=== PATIENT | female | born 1985 | race Caucasian/White ===

== ENCOUNTER 2017-04-11 08:16 | Inpatient (IN) | payer BC ==
[~2017-04-11] VITALS: Ht 166.4 cm; Wt 100.0 kg
[~2017-04-11 08:16] MED LIST: [UNRECOGNIZED DRUG - OTHER]
--- NOTE | 2017-04-11 09:00 | Progress Note ---
Progress Note Date of Service Apr 11, 2017. Progress Note 31 F P0000 at 38 weeks admitted with SROM clear fluid. T Cat 1. Cervix ft/50 /-3/vertex. Will admit and ambulate.
[2017-04-11 09:38] LABS: MEAN CORPUSCULAR HEMOGLOBIN 32.2 pg (25-34); MEAN CORPUSCULAR HGB CONC 36.2 g/dl (32-36); MEAN PLATELET VOLUME 9.9 fL (7.4-10.4); PLATELET COUNT 266 K/uL (130-400); RED BLOOD COUNT 3.82 M/uL (4.2-5.4); WHITE BLOOD COUNT 9.78 K/uL (4.8-10.8)
[2017-04-11] MEDS ORDERED: LACTATED RINGER'S 1000ML 500 ML IV PRN (16:13)
[2017-04-11] MEDS ORDERED: OXYTOCIN 30 UNITS/500ML NSS IV PRN (16:15)
[2017-04-11] MEDS: LACTATED RINGER'S 1000ML 1,000 ML IV SCH (17:18)
[2017-04-11] MEDS ORDERED: MISOPROSTOLTAB 50 MCG TAB PO ONE (17:30)
[2017-04-11 18:09] VITALS: Ht 166.4 cm; Wt 100.0 kg
[2017-04-11] MEDS ORDERED: MISOPROSTOLTAB 50 MCG TAB ONE (19:51)
[2017-04-12] MEDS ORDERED: NURSING VERBAL MED ORDER ONE (00:15)
[2017-04-12] MEDS ORDERED: BUTORPHANOL TARTRATE 1 MG/ML VIAL IV ONE (00:30)
[2017-04-12] MEDS ORDERED: BUPIVACAINE 0.25% 30 ML VIAL ONE ×2 (00:57→10:52)
[2017-04-12] MEDS ORDERED: EpHEDrine SULFATE INJ 50 MG/ML AMP ONE (00:57)
[2017-04-12] MEDS ORDERED: FENTANYL 2MCG/ML ROPIV 1.25MG/ML 100ML BAG EPI ONE (00:58)
[2017-04-12] MEDS ORDERED: FENTANYL CITRATE INJ 50 MCG/1 ML 2 ML VIAL ONE (00:58)
[2017-04-12] MEDS: LACTATED RINGER'S 1000ML 1,000 ML IV SCH ×3 (01:29→10:42)
[2017-04-12] MEDS ORDERED: LACTATED RINGER'S 1000ML 500 ML IV PRN (02:56)
[2017-04-12] MEDS ORDERED: NALOXONE HCL INJ 1 MG in SODIUM CHLORIDE 0.9% 1000ML 1,000 ML IV PRN (02:56)
[2017-04-12] MEDS ORDERED: NALOXONE HCL INJ 0.4 MG/1 ML VIAL/CARP IV PRN (03:00)
[2017-04-12] MEDS ORDERED: ONDANSETRON INJ 2 MG/ML 2 ML VIAL IV PRN (03:00)
[2017-04-12] MEDS ORDERED: FENTANYL 2MCG/ML ROPIV 1.25MG/ML 100ML BAG EPI PRN (03:00)
[2017-04-12] MEDS ORDERED: EpHEDrine SULFATE INJ 50 MG/ML AMP IV PRN (03:00)
[2017-04-12] MEDS ORDERED: DiphenhydrAMINE HCL 50 MG/ML VIAL IV PRN (03:00)
[2017-04-12] MEDS ORDERED: NALBUPHINE HCL INJ 10 MG/ML AMP IV PRN (03:00)
[2017-04-12] MEDS: FENTANYL 2MCG/ML ROPIV 1.25MG/ML 100ML BAG EPI PRN ×2 (04:21→07:07)
[2017-04-12] MEDS: CEFAZOLIN IV 2,000 MG in DEXTROSE 5% 50ML 50 ML IV SCH (11:42)
[2017-04-12] MEDS ORDERED: LACTATED RINGER'S 1000ML 1,000 ML IV SCH (12:31)
[2017-04-12] MEDS ORDERED: OXYTOCIN 30 UNITS/500ML NSS IV PRN (12:45)
[2017-04-12] MEDS ORDERED: OXYCODONE/ACETAMINOPHEN 5-325 TAB PO PRN (12:45)
[2017-04-12] MEDS ORDERED: DIPHTHERIA/TETANUS/PERTUSSIS 0.5 ML SYR/VIAL IM. ONE (12:45)
[2017-04-12] MEDS ORDERED: MEASLES, MUMPS & RUBELLA VIRUS VIAL SQ. ONE (12:45)
[2017-04-12] MEDS ORDERED: BENZOCAINE 20% AER SPR 82.5 GM CAN EXT PRN (12:45)
[2017-04-12] MEDS ORDERED: SUPERCREAM 0.870 % 15GM JAR EXT PRN (12:45)
[2017-04-12] MEDS ORDERED: LANOLIN OINT EXT PRN ×2 (12:45)
[2017-04-12] MEDS ORDERED: HYDROCORTISONE ACETATE 25 MG SUPP PR PRN (12:45)
--- NOTE | 2017-04-12 13:12 | DELIVERY SUMMARY ---
DATE OF OPERATION: 04/12/2017 TIME OF DELIVERY OF BABY: 11:58 a.m. TIME OF DELIVERY OF PLACENTA: 12:23 pm DETAILS OF DELIVERY: The patient was found to be fully dilated and desired to push. She pushed for about 3-1/2 hours and was found to be exhausted and declined to push due to the pain, and epidural was not working. She was given a bolus by anesthesiologist from her catheter and she was let to rest about 15 to 20 minutes, and then she woke up with contractions again, wanted to push. She pushed for another half an hour and head was over the perineum which had a tight hymenal ring and perineal muscles. After verbal consent was obtained, right mediolateral episiotomy was opened. A 1% of lidocaine was used for local anesthesia, and with the next 2 pushes head was delivered without difficulty. Shoulders were delivered with minimal traction. Baby was handed off to the mother, where mouth and nose were suctioned. Cord was clamped x2 and cut at 1 minute. Now, vagina and perineum were checked for lacerations. There was only right mediolateral episiotomy which was opened earlier, it was confirmed to be second degree with rectal exam good sphincter tone was noted and gloves were changed. Episiotomy was repaired with 2-0 Vicryl in a running locked fashion bringing the vaginal mucosa together, perineal body muscles together and skin in a subcuticular fashion. Excellent hemostasis was achieved, and placenta was found to be in the vagina, delivered spontaneously as intact and complete. Lower segment was cleared of all clots and debris. Fundus was firm. EBL was 400. Rectal exam was repeated and found to have good sphincter tone. No sutures were felt. Gloves were changed. Mom and baby tolerated the procedure well. Sponge, lap, and needle counts were correct x3. Baby was a viable male infant, Apgars 8 and 9, weight is 3010. No complications happened. I was present during the whole procedure. I attest to the content of the Intraoperative Record and any orders documented therein. Any exceptions are noted below. MTDD
[2017-04-12] MEDS: IBUPROFEN 600 MG TAB PO PRN ×2 (13:40→18:01)
--- NOTE | 2017-04-12 14:56 | Anesthesia Procedure Note ---
Anesthesia Epidural Removal Nt Date & Time Apr 12, 2017 at 14:52 Vital Signs Pain Intensity: 4.0 Notes Mental Status: alert / awake / arousable, participated in evaluation Nausea / Vomiting: adequately controlled Pain: adequately controlled Airway Patency, RR, SpO2: stable & adequate BP & HR: stable & adequate Hydration State: stable & adequate Neuraxial Anesthesia: was administered, sensory block is resolving Anesthetic Complications: pt satisfied with anesthetic care, as follows Anesthetic Complications: Pt received an inadvertent intrathecal catheter. Upon removal of the catheter, I spoke to the patient about the risk of developing a postdural puncture headache. I recommended that the patient receive adequate fluid hydration, caffeine, and bed rest. I spoke to the patient about conservative therapy vs. an epidural blood patch if she did develop a headache. The patient was understanding. I also spoke to Dr. Tucker about the possibility of a postdural puncture headache. Epidural: removed without complications, with tip intact
--- NOTE | 2017-04-12 15:05 | Anesthesiology Progress Note ---
Anesthesia Progress Note Date of Service Apr 12, 2017. Progress Notes Prior to delivery, I was asked by Dr. Tucker to aid in the patient's labor pain. The patient had been pushing for about 3 hours and was beginning to develop labor pains. I administered 3mL of 0.125% bupivacaine through her intrathecal catheter. The pt had immediate relief. Her BP initially declined to 70s/40s. I administered phenylephrine 200mcg IV and started a 1000mL LR bolus. The pt was asymptomatic and heart rates remained stable at 150bpm. I remained with the patient for 30 minutes post-intrathecal bolus. Vital signs for mother and baby were stable throughout with periodic 50mcg phenylephrine IV boluses. A total of 450mcg of phenylephrine had to be administered over this time frame. After 30 minutes, the patient stated having increasing abdominal pressure. It was decided that the patient resume pushing. Afterwards, the patient had an uncomplicated vaginal delivery.
[2017-04-12 15:55] VITALS: BP 119/78; PULSE 97; TEMP 36.8; O2SAT 98
[2017-04-12] MEDS: DOCUSATE SODIUM 100 MG CAP PO SCH (19:47)
[2017-04-12] MEDS: ACETAMINOPHEN 325 MG TAB PO PRN (19:49)
[2017-04-12 20:55] VITALS: BP 115/77; PULSE 80; TEMP 36.9; O2SAT 99
[2017-04-13 00:30] VITALS: BP 109/69; PULSE 80; TEMP 36.4; O2SAT 97
[2017-04-13] MEDS: IBUPROFEN 600 MG TAB PO PRN ×3 (00:50→20:08)
[2017-04-13] MEDS ORDERED: NURSING VERBAL MED ORDER ONE (01:45)
[2017-04-13] MEDS ORDERED: CAFFEINE CITRATE 500 MG in NS 1000ML IV SCH (02:30)
[2017-04-13 04:45] VITALS: BP 95/60; PULSE 79; TEMP 36.8; O2SAT 100
[2017-04-13 06:48] LABS: HEMATOCRIT 23.8 % (37-47); MEAN CELL VOLUME 91.2 fL (80-100); MEAN CORPUSCULAR HEMOGLOBIN 31.4 pg (25-34); MEAN CORPUSCULAR HGB CONC 34.5 g/dl (32-36); MEAN PLATELET VOLUME 9.2 fL (7.4-10.4); PLATELET COUNT 198 K/uL (130-400); RED BLOOD COUNT 2.61 M/uL (4.2-5.4); WHITE BLOOD COUNT 12.61 K/uL (4.8-10.8)
[2017-04-13 07:54] LABS: BASO % 0.1 %; BASO ABS # 0.01 K/uL (0-0.2); COMPLETE YES; EOS % 0.2 %; IG% 0.8 %; LYMPH % 22.5 %; LYMPH ABS # 2.84 K/uL (1.2-3.4); MONO % 4.8 %; NEUT % 71.6 %
[2017-04-13 07:55] VITALS: BP 96/62; PULSE 87; TEMP 36.7
--- NOTE | 2017-04-13 08:55 | OB/GYN Progress Note ---
OPTIMIZATION SPECIALIST Progress Note Date of Service Apr 13, 2017. Subjective conversation w/ patient, physical exam Ambulation: ambulating normally Voiding: no voiding problems Passing Gas: Yes Diet Tolerance: Regular Diet Lochia: Moderate Feeding Type: Breast Feeding Review of Systems Constitutional: No fever, No chills, No sweats, No weight loss, No weakness, No fatigue, No problem reported Respiratory: No cough, No sputum, No wheezing, No shortness of breath, No dyspnea on exertion, No dyspnea at rest, No hemoptysis, No problem reported Cardiac: No chest pain, No orthopnea, No PND, No edema, No claudication, No palpitations, No problem reported Breast: No see HPI, No breast lump, No change in shape, No nipple discharge, No breast pain, No problem reported Abdomen: No pain, No nausea, No vomiting, No diarrhea, No constipation, No GI bleeding, No problem reported Female : No see HPI, No dysuria, No urinary frequency, No hematuria, No incontinence, No abnormal vaginal bleeding, No vaginal discharge, No problem reported Objective Vital Signs Date Time Temp Pulse Resp B/P (MAP) Pulse Ox O2 Delivery O2 Flow Rate FiO2 04/13/17 07:55 36.7 87 18 96/62 (73) Room Air 04/13/17 04:45 36.8 79 16 95/60 (72) 100 Room Air 04/13/17 00:30 36.4 80 16 109/69 (82) 97 Room Air 04/13/17 00:30 97 Room Air 04/12/17 20:55 36.9 80 16 115/77 (90) 99 Room Air 04/12/17 15:55 Room Air 04/12/17 15:55 36.8 97 20 119/78 (92) 98 Room Air Physical Exam General Appearance: WELL-APPEARING, WD/WN, NO APPARENT DISTRESS Respiratory/Chest: chest non-tender, lungs clear, normal breath sounds, no respiratory distress, no accessory muscle use Cardiovascular: regular rate, rhythm, no edema, no gallop, no JVD, no murmur Abdomen: normal bowel sounds, non tender, soft, no organomegaly, no pulsatile mass Fundus: Firm Extremities: normal range of motion, non-tender, normal inspection, no pedal edema, no calf tenderness Laboratory Results Last 24 Hours Test 04/13/17 06:05 White Blood Count 12.61 K/uL Red Blood Count 2.61 M/uL Hemoglobin 8.2 g/dL Hematocrit 23.8 % Mean Corpuscular Volume 91.2 fL Mean Corpuscular Hemoglobin 31.4 pg Mean Corpuscular Hemoglobin Concent 34.5 g/dl Platelet Count 198 K/uL Mean Platelet Volume 9.2 fL Neutrophils (%) (Auto) 71.6 % Lymphocytes (%) (Auto) 22.5 % Monocytes (%) (Auto) 4.8 % Eosinophils (%) (Auto) 0.2 % Basophils (%) (Auto) 0.1 % Neutrophils # (Auto) 9.03 K/uL Lymphocytes # (Auto) 2.84 K/uL Monocytes # (Auto) 0.60 K/uL Eosinophils # (Auto) 0.03 K/uL Basophils # (Auto) 0.01 K/uL RDW Standard Deviation 42.6 fL RDW Coefficient of Variation 12.8 % Immature Granulocyte % (Auto) 0.8 % Immature Granulocyte # (Auto) 0.10 K/uL Red Blood Cell Morphology Unremarkable Assessment and Plan Day Number: 1 Continue Routine Care: PPD #1 Doing well On antibx for prolonged ROM Spinal headache- Anesthesia consult anticipate disch tomorrow
[2017-04-13] MEDS: DOCUSATE SODIUM 100 MG CAP PO SCH ×2 (09:24→20:08)
[2017-04-13] MEDS: PRENATAL VITAMIN TAB PO SCH (09:24)
[2017-04-13] MEDS: FERROUS SULFATE 325 MG TAB PO SCH (09:24)
[2017-04-13] MEDS: ACETAMINOPHEN 325 MG TAB PO PRN ×2 (09:28→16:19)
--- NOTE | 2017-04-13 10:24 | Progress Note ---
Progress Note Date of Service Apr 13, 2017. Progress Note Called to see patient for concern of postdural puncture headache. The patient is a 31 yo primip who vaginally delivered yesterday at 11:58. Epidural placement prior to delivery was noted to be difficult and an intrathecal catheter was placed after inadvertent dural puncture. The catheter was removed yesterday afternoon and the patient reports a headache today. The headache started in the front, but is now concentrated at the base of her spine. The headache is relieved with lying down and exacerbated by standing up. The patient has been hydrating with fluids and drinking water to assist with the headache. The patient is considering blood patch placement. I spent time with the patient explaining the theoretical etiology of postdural puncture headache and the risks and benefits associated with blood patch placement. Risks included but aren't limited to bruising and bleeding on placement, infection, inadvertent repeat dura puncture with worsening of the headache, back pain, nerve damage, and failure to relieve the symptoms despite successful placement. We discussed that literature shows higher success rate if placed after the first 24 hours instead of before. We also discussed the normal course of postdural puncture headache including likely self resolution within 5 to 7 days. The patient was encouraged to continue hydrating and medicating with caffeinated products. She was also encouraged to lay flat as frequently as possible. The patient will consider placement and we will check on her again this afternoon.
[2017-04-13] MEDS: CEFAZOLIN IV 2,000 MG in DEXTROSE 5% 50ML 50 ML IV SCH ×2 (11:18→19:16)
[2017-04-13 12:20] VITALS: BP 102/67; PULSE 68; TEMP 36.9
[2017-04-13 15:45] VITALS: BP 103/69; PULSE 78; TEMP 36.8; O2SAT 100
[2017-04-13] MEDS ORDERED: BISACODYL 5 MG TABEC PO SCH (20:00)
--- NOTE | 2017-04-13 21:43 | Anesthesiology Progress Note ---
Anesthesia Progress Note Date of Service Apr 13, 2017. Progress Notes Pt has c/o PDPH.Pt requests an epidural blood patch.Discussed procedure with pt. ,risks vs benefits,all questions answered.Informed consent obtained.Monitors applied,Vs's taken. Pt placed sitting up L4-5 interspace ID'ed.Prepped w/duraprep x 2,draped.1% lidocaine local infiltration.#17G tuohy needle inserted,+ LORTS.atraumatic,no blood,no csf or paresthesias.Concurrently blood was drawn from pt's arm using sterile prep and draping with chloroprep. At 2112 , 20 ml of blood was injected via the epidural needle into the epidural space.Needle was removed and pt was placed supine x 30 minutes. At 2141,pt was reassessed by having her sit up.Pt stated H/A has abated.
[2017-04-14 00:15] VITALS: BP 105/65; PULSE 81; TEMP 36.6
[2017-04-14] MEDS ORDERED: BISACODYL 10 MG SUPP PR PRN (07:00)
[2017-04-14 07:02] LABS: HEMATOCRIT 23.3 % (37-47); MEAN CORPUSCULAR HGB CONC 35.2 g/dl (32-36); MEAN PLATELET VOLUME 9.9 fL (7.4-10.4); PLATELET COUNT 214 K/uL (130-400); RED BLOOD COUNT 2.56 M/uL (4.2-5.4); WHITE BLOOD COUNT 10.27 K/uL (4.8-10.8)
--- NOTE | 2017-04-14 07:07 | OB/GYN Progress Note ---
MARKETING COMMUNICATIONS SPECIALIST Progress Note Date of Service Apr 14, 2017. Subjective conversation w/ patient, physical exam Ambulation: ambulating normally Voiding: no voiding problems Passing Gas: Yes Diet Tolerance: Regular Diet Lochia: Moderate Feeding Type: Breast Feeding Review of Systems Constitutional: No fever, No chills, No sweats, No weight loss, No weakness, No fatigue, No problem reported Respiratory: No cough, No sputum, No wheezing, No shortness of breath, No dyspnea on exertion, No dyspnea at rest, No hemoptysis, No problem reported Cardiac: No chest pain, No orthopnea, No PND, No edema, No claudication, No palpitations, No problem reported Breast: No see HPI, No breast lump, No change in shape, No nipple discharge, No breast pain, No problem reported Abdomen: No pain, No nausea, No vomiting, No diarrhea, No constipation, No GI bleeding, No problem reported Female : No see HPI, No dysuria, No urinary frequency, No hematuria, No incontinence, No abnormal vaginal bleeding, No vaginal discharge, No problem reported Objective Vital Signs Date Time Temp Pulse Resp B/P (MAP) Pulse Ox O2 Delivery O2 Flow Rate FiO2 04/14/17 00:15 Room Air 04/14/17 00:15 36.6 81 18 105/65 (78) Room Air 04/13/17 15:45 36.8 78 18 103/69 (80) 100 Room Air 04/13/17 15:45 100 Room Air 04/13/17 12:20 36.9 68 20 102/67 (79) Room Air 04/13/17 08:30 Room Air 04/13/17 07:55 36.7 87 18 96/62 (73) Room Air Physical Exam General Appearance: WELL-APPEARING, WD/WN, NO APPARENT DISTRESS, uncomfortable Respiratory/Chest: chest non-tender, lungs clear, normal breath sounds, no respiratory distress, no accessory muscle use Cardiovascular: regular rate, rhythm, no edema, no gallop, no JVD, no murmur Abdomen: normal bowel sounds, non tender, soft, no organomegaly, no pulsatile mass Fundus: Firm Extremities: normal range of motion, non-tender, normal inspection, no pedal edema, no calf tenderness Laboratory Results Last 24 Hours Test 04/14/17 06:16 White Blood Count 10.27 K/uL Red Blood Count 2.56 M/uL Hemoglobin 8.2 g/dL Hematocrit 23.3 % Mean Corpuscular Volume 91.0 fL Mean Corpuscular Hemoglobin 32.0 pg Mean Corpuscular Hemoglobin Concent 35.2 g/dl RDW Standard Deviation 42.9 fL RDW Coefficient of Variation 13.0 % Platelet Count 214 K/uL Mean Platelet Volume 9.9 fL Assessment and Plan Day Number: 2 Continue Routine Care: PPD #2 pt doing well Blood patch for spinal headache pt much improved d/c home this evening
[2017-04-14] MEDS ORDERED: MTR600X PO (07:09)
--- NOTE | 2017-04-14 07:15 | Discharge Instructions ---
Discharge Instructions Date of Service Apr 14, 2017. Admission Reason for Admission: R/O Rupture Of Membranes Discharge Discharge Diagnosis / Problem: Discharge Goals Goal(s): Routine recovery after delivery Activity Recommendations Activity Limitations: as noted below ACTIVITY RECOMMENDATIONS: * Gradual return to full activity over the next 2-3 weeks. * No lifting - nothing heavier than baby over the next 2-3 weeks. * Do not engage in vigorous exercise, sexual activity or sports until cleared by your physician. * Do not drive or operate any motorized equipment until cleared by your physician. * You may shower/bathe daily. BREAST CARE: If you are not breast feeding: * Wear a supportive bra 24 hours a day for one to two weeks. * Avoid stimulating your breasts and nipples as much as possible during the first few weeks after delivery. * When taking a shower, have the warm water hit your back, not breasts. * When your breasts feel full, apply ice packs. Usually three to four times a day helps ease the discomfort. * Take a mild pain medication (Tylenol/Motrin) when you are uncomfortable. If breast feeding: * Use breast milk to lubricate nipples. Lansinoh cream may be used for sore nipples. You do not need to remove cream prior to breast feeding. If using a different brand of cream, check the label for directions regarding removal of cream prior to nursing. * Wear a supportive bra. * If having problems with breasts or breast feeding, call a exchange underwriting consultant or your health care provider. EPISIOTOMY CARE: After delivery, if you have an episiotomy (stitches), the following steps will ease discomfort and aid healing. * For the first 24 hours after delivery, place ice packs next to your episiotomy to help reduce swelling. * After the first 24 hour-period, sitz baths, either portable or in the tub, are suggested. A shower with a shower arm sprayed over the episiotomy may be comforting. * Perla care should be done after each voiding and bowel movement. Squirt warm water from a plastic bottle over the perineum (region of the body between the anus and urinary opening) and pat dry. * Use Dermoplast to ease discomfort. Shake container. [place] directly over the episiotomy. * Place a Tucks on a clean sanitary pad next to your episiotomy. OVER THE COUNTER MEDICATION: * For discomfort or pain, you may use Acetaminophen (Tylenol), Ibuprofen (Advil ), or Naproxen (Aleve) following the package directions. * For constipation you may use Colace following the package directions. SPECIAL CARE INSTRUCTIONS: When you are discharged from the hospital, it is important for you to follow the instructions listed below: * During the first week at home, you should be able to care for yourself and your baby. In addition, the usual light household activities are encouraged. * Limit your activities to the way you feel. Do not try to clean the house or move furniture. Be sensible. * If you actively engage in sports and have done so up until the time of your delivery, you may resume these activities as soon as you feel able. This may take up to one month or even longer. Use good judgment. * Continue to take your vitamins for at least six weeks after the of your baby. * Your diet need not be limited unless you were on a special diet before your delivery. Breast-feeding mothers need around 2500 calories per day and at least 64-80 ounces of fluid per day (8 to 10 glasses). * You should eat foods from the four major food groups. Crash diets or fad diets are to be avoided. Eating lean meats, fresh fruits and vegetables, low-fat dairy products, high fiber foods and a regular exercise program, will help you get back to your pre- weight without putting your health at risk. * Constipation is sometimes a problem after delivery. Take a mild laxative as needed. If breast feeding, Milk of Magnesia is acceptable to use. You may use a suppository or Fleets enema if no episiotomy. * A daily shower or tub bath is suggested. Be sure to thoroughly and gently dry the perineum. * A bloody vaginal discharge will usually continue until around four weeks post . A small amount of bleeding may continue for as long as six weeks. Vaginal discharge changes from the bright red bleeding after delivery to pink then brownish and finally yellowish-pink before becoming white and disappearing. * Bleeding may increase with activity. Your first period may come in 4-8 weeks. If you are breast feeding, your period may be delayed even longer. * [place] (sex) can begin whenever both you and your partner feel comfortable and do not have any form of genital infection. It is recommended that you wait until after your return appointment and discuss with your physician. If you have questions, please talk to your health care practitioner. A condom should be used to prevent infection and . * Foreplay, gentle intercourse and lubrication is very important the first several times to prevent pain. A water-based lubricant such as K-Y jelly or Astroglide may be used. * Tampons may be used six weeks after delivery. * Douching should be avoided for 6 weeks after delivery. * If you have RH negative blood and your baby is RH positive, you will receive RHOGAM by injection prior to discharge. The nurse will give you a card to keep with you that has the date and place that you received RHOGAM after delivery. * During your care, you had a Rubella screen done to check for the presence of rubella antibodies in your blood. If your test was negative, you will receive a Rubella vaccine prior to discharge. This vaccine may cause a fever, soreness at the injection site and flu-like symptoms. If these symptoms persist, notify your health care practitioner. is not advised for three months after a Rubella vaccine. There is a higher chance of having a baby with defects if conceived within three months of getting the vaccine. * If you were discharged 24 hours from delivery or before 48 hours: Visiting nurses will come to your home 48 hours after discharge to assess you and your baby. The visiting nurse will meet with you while you are in the hospital to arrange a time and get directions to your home. * Verbalizes understanding of car seat law as reviewed with patient nursing. * Car Seat hand-out given and reviewed with patient by nursing. * Shaken baby information reviewed with patient by nursing. Call you doctor if: * Heavy bleeding (saturating several pads an hour) or passing clots the size of your fist. * A fever >101 degrees F (38.3 degrees C) on two occasions four hours apart and/or chills. * Unusual pain in the pelvic or vaginal areas. * "Baby Blues" lasting longer than two weeks. If you have any questions or concerns, call your health care practitioner at . FOLLOW-UP VISIT: * Please call the office at to schedule a 6 week examination. It is important you keep this appointment. * It is important for you to make arrangements for either yearly or twice yearly check-ups thereafter. . Current Hospital Diet Patient's current hospital diet: Regular OB Diet Discharge Diet Recommended Diet: Regular Diet Pending Studies Studies pending at discharge: no Medical Emergencies . Who to Call and When: Medical Emergencies: If at any time you feel your situation is an emergency, please call 911 immediately. . Non-Emergent Contact Non-Emergency issues call your: Specialist . . "Provider Documentation" section prepared by Martín Nelson. . VTE Core Measure Inpt VTE Proph given/why not?: Treatment not indicated
[2017-04-14 07:35] VITALS: BP 104/72; PULSE 66; TEMP 36.4
[2017-04-14] MEDS: DOCUSATE SODIUM 100 MG CAP PO SCH ×2 (08:36→21:05)
[2017-04-14] MEDS: FERROUS SULFATE 325 MG TAB PO SCH (08:36)
[2017-04-14] MEDS: PRENATAL VITAMIN TAB PO SCH (08:36)
[2017-04-14 16:00] VITALS: BP 103/71; PULSE 72; TEMP 37; O2SAT 100
[2017-04-14] MEDS: IBUPROFEN 600 MG TAB PO PRN ×2 (16:35→20:36)
[2017-04-14 21:34] VITALS: BP_DIAS 71; PULSE 72; TEMP 37
== END 2017-04-14 21:35 | disposition home or self-care (01) | DRG 775 ==
LOC: C.OPB 08:16 → C.LD 08:16 → C.OPB 08:57 → C.LD 08:57 → C.OBG 04-12 17:10 → EDSTATUS 04-25 08:28
PROVIDERS: ADMIT Obstetrics & Gynecology; ATTEND Obstetrics & Gynecology
PROC: 0W8NXZZ Division of Female Perineum, External Approach (ICD-10-PCS; principal; 2017-04-12)
PROC: 10E0XZZ Delivery of Products of Conception, External Approach (ICD-10-PCS; principal; 2017-04-12)
PROC: 3E0S3GC Introduction of Other Therapeutic Substance into Epidural Space, Percutaneous Approach (ICD-10-PCS; 2017-04-13)
DX: O42.92 Full-term premature rupture of membranes, unspecified as to length of time between rupture and onset of labor (principal); O76 Abnormality in fetal heart rate and rhythm complicating labor and delivery; Z3A.38 38 weeks gestation of pregnancy; Z37.0 Single live birth; O89.4 Spinal and epidural anesthesia-induced headache during the puerperium

== ENCOUNTER 2017-04-16 18:09 | Emergency (ER) | payer BC ==
[~2017-04-16] VITALS: Ht 165.1 cm; Wt 93.5 kg
[~2017-04-16 18:09] MED LIST changes: +MTR600X PO
[2017-04-16 18:34] VITALS: TEMP 37.2; Ht 165.1 cm; Wt 93.5 kg
[2017-04-16] MEDS ORDERED: IBUP-1428 PO (19:23)
[2017-04-16] MEDS ORDERED: PRENTAB26 PO (19:25)
[2017-04-16] MEDS ORDERED: CHOL1000 PO (19:26)
[2017-04-16] MEDS ORDERED: OMEG10007 PO (19:27)
[2017-04-16] MEDS ORDERED: OYST500T47 PO (19:28)
[2017-04-16 20:30] VITALS: BP 139/79; PULSE 102; O2SAT 98
--- NOTE | 2017-04-16 20:57 | EMERGENCY ROOM VISIT NOTE ---
ED Visit Note First contact with patient: 19:35 CHIEF COMPLAINT: Headache s/p epidural HISTORY OF PRESENT ILLNESS: This 31-year-old female patient presents to the emergency department, ambulatory, at the request of anesthesia. The patient contacted anesthesiologist regarding ongoing headache after epidural. She had an epidural last week on the for the delivery of her son. The patient states 24 hours later, she developed a migraine, and needed a blood patch the following day, on the . The patient states she had total relief of the symptoms for the past 2 days, however this morning, she awoke at 5 AM with a worsening migraine. The patient states the migraine was gradual in onset, bilateral, and starts in the front traveling to the back. The patient describes the migraine as "throbbing" and rates her pain 5/10. The patient states she is sensitive to light, sound, and is dizzy and nauseated. The patient tried ibuprofen, caffeinated beverages, and saline with caffeine she got from the hospital. She had no relief of her symptoms with these. The patient states when she is lying completely flat, relieved some of her pain. Despite was her first day home with her baby. The patient denies vomiting, diarrhea, constipation, pain aside from the headache, changes in vision, fever, chills, night sweats, numbness or tingling, chest pain, dyspnea. REVIEW OF SYSTEMS: A 10-system review of systems was performed with positives and pertinent negatives listed in the history of present illness. All other systems were reviewed and are negative. ALLERGIES: None MEDICATIONS: Ibuprofen, vitamins, vitamin D3, fish oil, calcium PMH: Recent epidural for childbirth. SOCIAL HISTORY: Lives locally with family. She denies drug, alcohol, tobacco use. PHYSICAL EXAM: VITALS: Vitals are noted on the nurse's note and reviewed by myself. Vital signs stable. GENERAL: This is a 31-year-old female, in no acute distress, nondiaphoretic, well-developed well-nourished. HEAD: Normocephalic atraumatic. EARS: External auditory canals clear, tympanic membranes pearly beatty without erythema or effusion bilaterally. EYES: Pupils equal round and reactive to light and accommodation. Conjunctivae without injection, sclerae without icterus. Extraocular movements intact. NOSE: Patent, turbinates without inflammation or discharge. No sinus tenderness. MOUTH: Mucous membranes moist. Tonsils are not enlarged. Pharynx without erythema or exudate. Uvula midline. Airway patent. Tongue does not deviate. NECK: Supple without nuchal rigidity. No lymphadenopathy. No thyromegaly. Cervical spine is nontender. No JVD. HEART: Regular rate and rhythm without murmurs gallops or rubs. LUNGS: Clear to auscultation bilaterally without wheezes, rales or rhonchi. No dullness to percussion. No retractions or accessory muscle use. EMERGENCY DEPARTMENT COURSE: The patient was seen and evaluated as above. The anesthesiologist came to the emergency department to see the patient. He performed a blood patch. Please see his dictation for procedure note. The patient was allowed to lie flat for 45 minutes. She did note improvement in her symptoms. She was discharged home in good condition. DIFFERENTIAL DIAGNOSIS: Migraine, headache, post-epidural migraine, infectious cause of headache, malignancy, and others DIAGNOSIS: Post epidural migraine DISCHARGE INSTRUCTIONS & TREATMENT: Rest today in a quiet, peaceful, dark environment and get a full 8-10 hrs of sleep tonight. Avoid loud noises, smoke/smoking, alcohol, bright lights, stress, or physical exertion today to minimize the chance the headache may return. Continue current medications as prescribed. Follow directions provided to you by anesthesiologist. Ibuprofen(Motrin, Advil) may be used for fever or pain. Use 600mg every six hours as needed. Take with food. Avoid using more than 2400mg in a 24 hour period. Do not use 2400mg per day for more than three consecutive days without physician direction. Prolonged inappropriate use can lead to stomach upset or ulcers. (AND/OR) Acetaminophen(Tylenol) may be used for fever or pain. Use 1000mg every six hours as needed. Avoid using more than 3000mg in a 24 hour period. Drink plenty of caffeinated beverages, and lie flat when possible. Return to the ER for passing out, worsening headache, vision problems, neck stiffness/pain, fevers, vomiting, worsening of your condition, or as needed. If headache recurs, see care by [facility] specialist. Follow up with your primary physician in 2-3 days for a recheck of your current condition. Current/Historical Medications Scheduled Cholecalciferol (Vitamin D3), 1,000 UNITS PO DAILY Fish Oil ([place]-3), 1 CAP PO DAILY Multivit/Min/Iron/Fol Ac/Pren ( Vitamin), 1 TAB PO DAILY Oyster Shell (Calcium), 500 MG PO DAILY Scheduled PRN Ibuprofen (Motrin), 800 MG PO Q8H PRN for Pain Allergies Coded Allergies: No Known Allergies (Verified , 03/17/06) Vital Signs Date Time Temp Pulse Resp B/P (MAP) Pulse Ox O2 Delivery O2 Flow Rate FiO2 04/16/17 20:30 102 18 139/79 98 Room Air 04/16/17 18:34 37.2 73 18 145/87 100 Room Air Departure Information Impression Primary Impression: Epidural anesthesia-induced headache during puerperium Dispostion Home / Self-Care Condition GOOD Referrals Maribell Wilhelm D.O. (PCP) Daniela Diop, DO Patient Instructions ED Headache Post Spinal Tap W Patch, My [facility] Additional Instructions Rest today in a quiet, peaceful, dark environment and get a full 8-10 hrs of sleep tonight. Avoid loud noises, smoke/smoking, alcohol, bright lights, stress, or physical exertion today to minimize the chance the headache may return. Continue current medications as prescribed. Follow directions provided to you by anesthesiologist. Ibuprofen(Motrin, Advil) may be used for fever or pain. Use 600mg every six hours as needed. Take with food. Avoid using more than 2400mg in a 24 hour period. Do not use 2400mg per day for more than three consecutive days without physician direction. Prolonged inappropriate use can lead to stomach upset or ulcers. (AND/OR) Acetaminophen(Tylenol) may be used for fever or pain. Use 1000mg every six hours as needed. Avoid using more than 3000mg in a 24 hour period. Drink plenty of caffeinated beverages, and lie flat when possible. Return to the ER for passing out, worsening headache, vision problems, neck stiffness/pain, fevers, vomiting, worsening of your condition, or as needed. If headache recurs, see care by [facility] specialist. Follow up with your primary physician in 2-3 days for a recheck of your current condition.
--- NOTE | 2017-04-16 23:52 | Progress Note ---
Progress Note Date of Service Apr 16, 2017. Progress Note Patient is a 31F with headache who had delivered vaginally on 04/12. At that time she did have a yuri wet tap and an intrathecal catheter was placed for labor. On 04/14, the patient underwent epidural blood patch for PDPH which instantly relieved her symptoms. This morning, her headache returned with the exact same qualities as prior. The headache is completely relieved when supine and severe when seated or standing. She has no fevers, chills, or neurologic symptoms. Labs and studies were reviewed. She is otherwise healthy. On exam, there were no red flags, and the lumbar spine had several punctures in the low lower midline. Risks and benefits were discussed and she elected to proceed with second blood patch. The patient was initially placed in LLD, but epidural placement was difficult. She was then placed seated and L3/L4 epidural space was accessed by CHRISTIAN. At this point, an 18G IV was placed in the L hand and 20cc of blood was drawn. 17cc of this blood was injected in to the 17G tuhoy needle before the patient complained of significant pain and cramping in her legs and so injection was stopped. The patient was placed in supine position for 45 minutes. After standing the patient had no residual headache. She was instructed to avoid lifting anything heavier than her and to avoid bearing down as much as possible for at least the next 72 hours. If her headache returns, she should be referred to chronic pain management for evaluation. Thank you for the consultation.
--- NOTE | 2017-04-25 10:31 | Progress Note ---
Progress Note Date of Service Apr 25, 2017. Progress Note Spoke with patient by phone. Her headache has been gone since her second blood patch. She is pleased with her care and has no further questions.
== END 2017-04-16 21:53 | disposition home or self-care (01) ==
LOC: C.EDB 18:10 → C.EDD 21:53
DX: O89.4 Spinal and epidural anesthesia-induced headache during the puerperium (principal)